=== PATIENT | female | born 1960 | race Caucasian/White ===

== ENCOUNTER 2023-02-19 14:25 | Outpatient (OUT) | payer MEDICARE, SELFPAY ==
--- NOTE | 2023-02-19 14:33 | MM_ITS ---
Patient Name: YAA BONE MR#: [id number] : 1960 Exam Date: 02/19/2023 Ordering Doctor: DR JASON STYLES D.O. RADIOLOGY REPORT PROCEDURE: MM TOMOSYNTHESIS SCREENING BI COMPARISON: MG MAMM SCREEN 3D DAVID CAD, 01/16/2021. MG MAMM SCREEN 3D DAVID CAD, 02/04/2022. INDICATIONS: Screening Calculator Name NCI Breast Cancer Risk Assessment Tool 5 Year Breast Cancer Risk 1.70% Lifetime Breast Cancer Risk 7.70% Personal Breast Cancer No Personal Ovarian Cancer No Treatments None Family Cancers None LOCATION: [facility] BREAST COMPOSITION: Scattered areas fibroglandular density. FINDINGS: DIAGNOSTIC CATEGORY 1--NEGATIVE. NO CHANGE FROM COMPARISON ASSESSMENT. Scattered benign-appearing calcifications are present. RIGHT BREAST: No significant suspicious finding. LEFT BREAST: No significant suspicious finding. RECOMMENDATIONS: ROUTINE MAMMOGRAM AND CLINICAL EVALUATION IN 12 MONTHS. PLEASE NOTE: A NORMAL MAMMOGRAM DOES NOT EXCLUDE THE POSSIBILITY OF BREAST CANCER. A CLINICALLY SUSPICIOUS PALPABLE LUMP SHOULD BE BIOPSIED. Dictated by: Nick Knight MD on 02/20/2023 at 08:28 Approved by: Nick Knight MD on 02/20/2023 at 08:29
== END 2023-02-19 14:26 | disposition home or self-care (01) ==
LOC: MAMMO 14:28
PROVIDERS: PCP Internal Medicine; Visit Provider Internal Medicine
DX: Z12.31 Encounter for screening mammogram for malignant neoplasm of breast (principal)
CPT/HCPCS: 77063; 77067

== ENCOUNTER 2024-02-22 10:25 | Outpatient (OUT) | payer MEDICARE, SELFPAY ==
--- NOTE | 2024-02-22 10:27 | MM_ITS ---
Patient Name: YAA BONE MR#: [id number] : 1960 Exam Date: 02/22/2024 Ordering Doctor: DR JASON STYLES D.O. RADIOLOGY REPORT PROCEDURE: MM TOMOSYNTHESIS SCREENING BI COMPARISON: MM TOMOSYNTHESIS SCREENING BI, 02/19/2023. INDICATIONS: Screening Calculator Name NCI Breast Cancer Risk Assessment Tool 5 Year Breast Cancer Risk 1.70% Lifetime Breast Cancer Risk 7.40% Personal Breast Cancer No Personal Ovarian Cancer No Treatments None Family Cancers None LOCATION: [facility] BREAST COMPOSITION: There are scattered areas of fibroglandular density. FINDINGS: DIAGNOSTIC CATEGORY 1--NEGATIVE. NO CHANGE FROM COMPARISON ASSESSMENT. Scattered benign-appearing calcifications are present. Scattered benign-appearing lymph nodes are present. RIGHT BREAST: No significant suspicious finding. LEFT BREAST: No significant suspicious finding. RECOMMENDATIONS: ROUTINE MAMMOGRAM AND CLINICAL EVALUATION IN 12 MONTHS. PLEASE NOTE: A NORMAL MAMMOGRAM DOES NOT EXCLUDE THE POSSIBILITY OF BREAST CANCER. A CLINICALLY SUSPICIOUS PALPABLE LUMP SHOULD BE BIOPSIED. Dictated by: Nick Knight MD on 02/22/2024 at 13:27 Approved by: Nick Knight MD on 02/22/2024 at 13:45
== END 2024-02-22 10:26 | disposition home or self-care (01) ==
LOC: MAMMO 10:25
PROVIDERS: PCP Internal Medicine; Visit Provider Internal Medicine
DX: Z12.31 Encounter for screening mammogram for malignant neoplasm of breast (principal)
CPT/HCPCS: 77063; 77067

== ENCOUNTER 2025-02-22 08:53 | Outpatient (OUT) | payer MEDICARE, SELFPAY ==
--- NOTE | 2025-02-22 08:55 | MM_ITS ---
Patient Name: YAA BONE MR#: [id number] : 1960 Exam Date: 02/22/2025 Ordering Doctor: DR JASON STYLES D.O. RADIOLOGY REPORT PROCEDURE: MM TOMOSYNTHESIS SCREENING BI COMPARISON: MM TOMOSYNTHESIS SCREENING BI, 02/22/2024. MM TOMOSYNTHESIS SCREENING BI, 02/19/2023. MG MAMM SCREEN 3D DAVID CAD, 02/04/2022. MG MAMM DAVID SCRN W CAD DIG, 08/02/2013. INDICATIONS: Screening Calculator Name NCI Breast Cancer Risk Assessment Tool 5 Year Breast Cancer Risk 1.80% Lifetime Breast Cancer Risk 7.20% Personal Breast Cancer No Personal Ovarian Cancer No Treatments None Family Cancers None LOCATION: [facility] BREAST COMPOSITION: There are scattered areas of fibroglandular density. FINDINGS: RIGHT BREAST: No significant suspicious finding. LEFT BREAST: No significant suspicious finding. DIAGNOSTIC CATEGORY 1--NEGATIVE. RECOMMENDATIONS: ROUTINE MAMMOGRAM AND CLINICAL EVALUATION IN 12 MONTHS. Dictated by: Kelvin Santos DO on 02/22/2025 at 10:27 Approved by: Kelvin Santos DO on 02/22/2025 at 10:29
--- OUTSIDE RECORDS SUMMARY | 2025-02-22 08:56 | XMS_ITS | Encounter Summary ---
Author Organization [employer] Address [facility] [id number] [address] [place] [address] Care Team Providers Care Counselor Aide Name Role Phone Timothy Powell DO, Charles L Primary Care Provider Reason for Visit * ReasonCommentsMed Refill Encounter Details DateTypeDepartmentCare Team (Latest Contact Info)Ywrjmgkcqab68/16/2025Refill [facility] [address] [facility] [address] [place] [phone] Vilma Donohue, CARTRIDGE GAUGER-MEDICAL DIRECTOR OF HOSPICE [address] [place] [address] Type 1 diabetes mellitus with diabetic polyneuropathy ([facility]) Social History Tobacco UseTypesPacks/DayYears UsedDateSmoking Tobacco: NeverSmokeless Tobacco: NeverAlcohol UseStandard Drinks/WeekCommentsNever0 (1 standard drink = 0.6 oz pure alcohol)AUDIT-CAnswerDate RecordedQ1: How often do you have a drink containing alcohol?Never01/03/2025Q2: How many drinks containing alcohol do you have on a typical day when you are drinking?Patient does not drink01/03/2025Q3: How often do you have six or more drinks on one occasion?Never01/03/2025 ChildcareAnswerDate JdgslzneGzbliknuwFdsudml93/12/2019EmploymentAnswerDate AfrvuosxZdybcczwfoMbiwwwe73/12/2019Hunger ScreeningAnswerDate RecordedWithin the past 12 months we worried whether our food would run out before we got money to buy more.Never True01/03/2025Within the past 12 months the food we bought just didn't last and we didn't have money to get more.Never True01/03/2025Purpose - LifeAnswerDate RecordedPurpose and direction in hrmmBymlkzy49/21/2021 CommentsUnknownSex and Gender InformationValueDate RecordedSex Assigned at Not on fileLegal DevPweght30/06/2015 11:22 AM EDTGender IdentityNot on file Sexual OrientationNot on filedocumented as of this encounter Plan of Treatment DateTypeDepartmentCare Team (Latest Contact Info)Cvoamkhtqby56/10/2026 10:30 AM ESTOffice Visit [facility], A Department of [facility] [address] [facility] [address] [place] [address] Vidya Alberot MD [address] [facility] [place] [address] documented as of this encounter Visit Diagnoses Diagnosis Type 1 diabetes mellitus with diabetic polyneuropathy (CMS-HCC) documented in this encounter Care Teams Team MemberRelationshipSpecialtyStart DateEnd Date Carson Aguirre Jr., [address] [place] [id number] PCP - GeneralInternal Medicine07/09/23documented as of this encounter
--- OUTSIDE RECORDS SUMMARY | 2025-02-22 08:56 | XMS_ITS | Clinical Summary ---
Author Organization [facility] Healthcare Address [address] [place] [address] Care Team Providers Care Filter Tender Jelly Name Role Phone Carson Aguirre MD Primary Care Provider [phone] Allergies No known active allergies Medications MedicationSigDispense QuantityRefillsLast FilledStart DateEnd DateStatus atorvastatin (Lipitor) 40 MG tablet 40 mg08/14/2023ctive Insulin Lispro 100 UNIT/ML solution INJECT UP TO 55 UNITS SUBCUTANEOUSLY DAILY VIA INSULIN PUMP DIRECTED 01/09/2023ctive calcium carbonate (Os-Kehinde) 1250 (500 Ca) MG chewable tablet Chew 1 tablet DailyActive ferrous sulfate 325 (65 Fe) MG tablet Take 325 mg by mouth in the morning. Take with meals.Active Multiple Vitamins-Minerals (PRESERVISION AREDS 2 PO) Take by mouthActive Ascorbic Acid (vitamin C) 100 MG tablet Take 100 mg by mouth DailyActive aspirin 81 MG EC tablet Take 81 mg by mouth DailyActive Active Problems No known active problems Family History Medical HistoryRelationNameCommentsChronic bronchitisFatherCOPDMother HypertensionMotherRelationNameStatusCommentsFatherAliveMotherDeceased Social History Tobacco UseTypesPacks/DayYears UsedDateSmoking Tobacco: NeverSmokeless Tobacco: Never Tobacco Cessation:Counseling Given: No Alcohol UseStandard Drinks/WeekCommentsNot Currently0 (1 standard drink = 0.6 oz pure alcohol)CommentsUnknownSex and Gender InformationValueDate Recorded Sex Assigned at BirthNot on fileLegal ZpmZlzxxu64/15/2023 6:34 PM EDTGender IdentityNot on fileSexual OrientationNot on file Last Filed Vital Signs Vital SignReadingTime TakenCommentsBlood Pressure--Pulse--Temperature-- Respiratory Rate--Oxygen Saturation--Inhaled Oxygen Concentration--Loxiig27.2 kg (135 lb)10/29/2023 1:34 PM ZOYGcuxix294.2 cm (5' 7 )10/29/2023 1:34 PM EDTBody Mass Index21.14010/29/2023 1:34 PM EDT Plan of Treatment Not on file Insurance Care Teams Team MemberRelationshipSpecialtyStart DateEnd Date Carson Aguirre MD [facility] [place] [address] PCP - GeneralInternal Medicine10/29/23
--- OUTSIDE RECORDS SUMMARY | 2025-02-22 08:56 | XMS_ITS | Clinical Summary ---
Author Organization [employer] Address [facility] [id number] [address] [place] [address] Care Team Providers Care Electrical Line Mechanic Name Role Phone Timothy Powell DO, Charles L Primary Care Provider Allergies No known active allergies Medications MedicationSigDispense QuantityRefillsLast FilledStart DateEnd DateStatus aspirin 81 mg Take 1 tablet (81 mg total) by mouth in the morning.Active FERROUS SULFATE ORAL Take by mouth in the morning.Active blood-glucose meter,continuous (DEXCOM G6 ELECTRICIAN CONTROL EQUIPMENT) misc by miscellaneous route.Active atorvastatin (LIPITOR) 20 mg tablet Take 1 tablet (20 mg total) by mouth in the morning.Active losartan (COZAAR) 25 mg tablet Take 1 tablet (25 mg total) by mouth in the morning.Active blood sugar diagnostic (ONETOUCH ULTRA TEST) strip Indications:Type 1 diabetes mellitus with diabetic polyneuropathy ([facility])1 strip by other route 2 (two) times a day as needed for high blood sugar (For sensor failure). 50 strip 3Active blood-glucose transmitter (DEXCOM G6 TRANSMITTER) device Indications:Type 1 diabetes mellitus with diabetic polyneuropathy ([facility])Use 1 transmitter every 90 days as directed 1 each 4Active blood-glucose sensor (DEXCOM G6 SENSOR) device Indications:Type 1 diabetes mellitus with diabetic polyneuropathy ([facility])USE 1 DIRECTED AND CHANGE EVERY 10 DAYS 9 each 5Active insulin lispro (HumaLOG U-100 Insulin) 100 unit/mL injection Indications:Type 1 diabetes mellitus with diabetic polyneuropathy ([facility]) INJECT UP TO 55 UNITS SUBCUTANEOUSLY DAILY VIA INSULIN PUMP DIRECTED 50 mL 5Active glucagon HCL (GLUCAGON, HCL, EMERGENCY KIT) 1 mg recon soln Indications:Type 1 diabetes mellitus with diabetic polyneuropathy ([facility])Use for emergency hypoglycemia 1 each 5Active Additional Information Patient taking differently: As needed, Use for emergency hypoglycemia, Reported on 01/03/2025 calcium carbonate (OS-JADEN) 600 mg elemental (1,500 mg) tablet Take 1 tablet (600 mg total) by mouth in the morning and 1 tablet (600 mg total) in the evening. Take with meals.Active Active Problems ProblemNoted DateDiagnosed DateType 1 diabetes mellitus with diabetic scezmxyjztfyrj64/04/2023 Encounters DateTypeDepartmentCare UfxzDdteryyexuc21/16/2025Refill [facility] [address] [phone] Vilma Donohue APRN-KIRILL Type 1 diabetes mellitus with diabetic polyneuropathy ([facility])01/03/2025 1:30 PM EDTOffice Visit [facility], A Department of [facility] [address] [phone] Brisa Zapien APRN-KIRILL Type 1 diabetes mellitus with diabetic polyneuropathy ([facility]) (Primary Dx) 01/03/2025Travelfrom Last 3 Months Family History Medical HistoryRelationNameCommentsHyperlipidemiaMotherRelationNameStatus CommentsMother Social History Tobacco UseTypesPacks/DayYears UsedDateSmoking Tobacco: NeverSmokeless Tobacco: Never Tobacco Cessation:Counseling Given: Not Answered Alcohol UseStandard Drinks/WeekCommentsNever0 (1 standard drink = 0.6 oz pure alcohol)AUDIT-CAnswerDate RecordedQ1: How often do you have a drink containing alcohol?Never01/03/2025Q2: How many drinks containing alcohol do you have on a typical day when you are drinking?Patient does not drink01/03/2025Q3: How often do you have six or more drinks on one occasion?Never01/03/2025hildcareAnswer Date BhvhyzruSzfjcldveSbtxbhr96/12/2019EmploymentAnswerDate RecordedEmployment Bzrgqgm4108/18/2018Hunger ScreeningAnswerDate RecordedWithin the past 12 months we worried whether our food would run out before we got money to buy more.Never True01/03/2025Within the past 12 months the food we bought just didn't last and we didn't have money to get more.Never True01/03/2025Purpose - LifeAnswerDate RecordedPurpose and direction in yiasRzdtgmy94/21/2021CommentsUnknownSex and Gender InformationValueDate RecordedSex Assigned at BirthNot on fileLegal TfsHtkjbi96/06/2015 11:22 AM EDTGender IdentityNot on fileSexual OrientationNot on file Last Filed Vital Signs Vital SignReadingTime TakenCommentsBlood Rikmlkmn690/7101/03/2025 1:36 PM EDT Vkhcu301001/03/2025 1:36 PM EDTTemperature--Respiratory Urrh295007/09/2023 10:25 AM EDTOxygen Saturation--Inhaled Oxygen Concentration--Dotjgz52.5 kg (144 lb 6.4 oz)01/03/2025 1:36 PM NDUWwyoac962.6 cm (5' 6 )08/11/2024 11:12 AM EDTBody Mass Index23.31008/11/2024 11:12 AM EDT Plan of Treatment DateTypeDepartmentCare Team (Latest Contact Info)Ypxjdqcnimo21/10/2026 10:30 AM ESTOffice Visit [facility], A Department of [facility] [address] [facility] [address] [place] [phone] Vidya Alberto MD [address] [facility] [place] [address] Health MaintenanceDue DateLast DoneCommentsDiabetic Ophthalmology Exam1960 Statin Use: Dwhleydr29/15/1961Depression Rtkyfcxeq74/15/1973DTaP,Tdap and Td Vaccines (1 - Tdap)1979Pap Smear1981RSV ( or age 60+ yrs) (1 - Risk 50-74 years 1-dose series)2010Zoster (Shingles) Vaccine (1 of 2) 2010Diabetic Foot Exam/dult BMI Udhnawvle34/28/2026 01/03/2025Tobacco Jmfsybsfi03/28/207920OVID-19 VaccineCompleted 12/26/2024, 12/02/2023, 12/24/2022, Additional history existsInfluenza Vaccine Xhoxyvgqq82/20/2025, 12/02/2023, 12/24/2022, Additional history exists Medical Devices Not on file Procedures Procedure NamePriorityDate/TimeAssociated DiagnosisCommentsPOCT HEMOGLOBIN A1C Ufdjvse1401/03/2025 2:23 PM EDT Type 1 diabetes mellitus with diabetic polyneuropathy ([facility]) from Last 3 Months Results * POCT Hemoglobin A1c (01/03/2025 2:23 PM EDT)ComponentValueRef RangeTest Method Analysis TimePerformed AtPathologist SignatureExternal Poct Hgb A1C5.44 - 7 % Specimen (Source)Anatomical Location / LateralityCollection Method / Volume Collection TimeReceived HspuGonww94/28/2025 2:23 PM EDT Narrative Authorizing ProviderResult TypeResult StatusKatisak Zapien GRANT COORDINATOR-CNPPOINT OF CARE TEST ORDERABLESFinal Result from Last 3 Months Insurance Care Teams Team MemberRelationshipSpecialtyStart DateEnd Date Carson Aguirre Jr., DO [address] [place] [address] PCP - GeneralInternal Medicine07/09/23
--- OUTSIDE RECORDS SUMMARY | 2025-02-22 08:56 | XMS_ITS | Clinical Summary ---
Author Organization [facility] Address [address] [place], [place] [id number] Care Team Providers Care Black Ash Worker Name Role Phone Nely Webb MD Primary Care Provider [phone] Medications MedicationSigDispense QuantityRefillsLast FilledStart DateEnd DateStatus HUMALOG 100U/ML VIAL 5u am ssi@ unqmep430Active HUMULIN N 100U/ML VIAL 18u am 3u @dxlwrw020Active PAXIL 20MG TABLET Take one(1) tablet daily.Active COSOPT EYE DROPS use as qyyognuw744/25/2002Active PRINIVIL 5MG TABLET Take one(1) tablet daily.Active GLUCAGON 1MG EMERGENCY KIT uzn601Active LANTUS 100U/ML VIAL Indications:Type I (juvenile type) diabetes mellitus without mention of complication, jfwfqgbfbtof79 units at bedtime 2 12008/31/2001Active Active Problems ProblemNoted DateDiagnosed DateType I (juvenile type) diabetes mellitus without mention of complication, fnopeyjxftzn82/25/2002 Social History Tobacco UseTypesPacks/DayYears UsedDateSmoking Tobacco: NeverAlcohol UseStandard Drinks/WeekCommentsNo0 (1 standard drink = 0.6 oz pure alcohol)Comments NoSex and Gender InformationValueDate RecordedSex Assigned at BirthNot on file Legal GveOmsmom36/02/2012 9:09 AM ESTGender IdentityNot on fileSexual OrientationNot on file Last Filed Vital Signs Vital SignReadingTime TakenCommentsBlood Utzovgbr644/7509 9:40 AM EDT Ygobc7609 9:40 AM EDTTemperature--Respiratory Rate--Oxygen Saturation-- Inhaled Oxygen Concentration--Wmedzg89.1 kg (163 lb 4.8 oz)11/29/2001 9:40 AM GKHLydozf648.6 cm (5' 6 )11/29/2001 9:40 AM EDTBody Mass Index26.36011/29/2001 9:40 AM EDT Plan of Treatment Health MaintenanceDue DateLast DoneCommentsAnxiety Lsmputygn66/15/1979Depression Phynpcdhg38/15/1979HIV Ykkqtkamy44/15/1979Hepatitis C Vmauwoaox50/15/1979 DTaP,Tdap,Td Vaccine (1 - Tdap)1979Cervical Cancer Jimxfahxy37/15/1982 Mammogram Inrivthgt48/15/2001CT Zhnezojzkyjt30/15/2006Cologuard (FIT-DNA) 03/23/20059883Gavjjjyddrm59/15/2006Colorectal Cancer Owptuqhcw73/15/2006Diabetes Acvmyqogn60, 11/29/2001Fecal Occult Blood2005Lipid Aldxdtick34/15/8446Qixatrlnvrnvs01/15/2006Pneumococcal Vaccine: 50+ (1 of 1 - PCV)2010Shingrix Vaccine (1 of 2)2010Covid-19 Vaccine (1 - season)2024Influenza Vaccine (#1)2024RSV Vaccine (1 - 1-dose 75+ series)2035 Procedures Procedure NamePriorityDate/TimeAssociated DiagnosisCommentsHEMOGLOBIN X9FDsotuaw 11/29/2001 12:05 PM EDT Diabetes Uncompl Guilherme-Uncontrlled from Last 3 Months or Most Recently Relevant to Health Maintenance Results * (ABNORMAL) HGB A1C (11/29/2001 12:05 PM EDT)ComponentValueRef RangeTest Method Analysis TimePerformed AtPathologist SignatureHemoglobin A1C6.2(A)4.0 - 6.0 % [facility] LABSpecimen (Source)Anatomical Location / Laterality Collection Method / VolumeCollection TimeReceived TimeBlood specimen (specimen)BLOOD SPECIMEN / Dpxnzxm6411/29/2001 12:05 PM EDT Narrative Authorizing ProviderResult TypeResult StatusSethu Ventura MDLABORATORYFinal Result Performing OrganizationAddressCity/State/ZIP CodePhone Number [facility] [address] [place] [address] from Last 3 Months or Most Recently Relevant to Health Maintenance Insurance * Guarantor: Mable Berry TypeRelation to PatientDate of BirthPhone Billing AddressSelf EgrFvys32 1960 [address] [place] [address] Care Teams Team MemberRelationshipSpecialtyStart DateEnd Date Nely Webb MD [address] [place] [phone] [facility]11/29/01
== END 2025-02-22 08:54 | disposition home or self-care (01) ==
LOC: MAMMO 08:53
PROVIDERS: PCP Internal Medicine; Visit Provider Internal Medicine
DX: Z12.31 Encounter for screening mammogram for malignant neoplasm of breast (principal); Z78.0 Asymptomatic menopausal state
CPT/HCPCS: 77063; 77067; 77080